=== PATIENT | male | born 1960 | race Two or more races ===

== ENCOUNTER 2021-05-03 14:55 | Emergency (ER) | payer OTHER ==
[~2021-05-03] VITALS: Ht 188 cm; Wt 102.1 kg
[2021-05-03] MEDS ORDERED: KETO10TA2 PO (18:41)
[2021-05-03] MEDS ORDERED: CIPRO500 MG PO (18:41)
[2021-05-03] MEDS ORDERED: TAMS0.4C PO (18:42)
== END 2021-05-03 18:51 | disposition home or self-care (01) ==
LOC: ER 14:55
DX: N20.1 Calculus of ureter (principal); K57.90 Diverticulosis of intestine, part unspecified, without perforation or abscess without bleeding; R10.31 Right lower quadrant pain; Z11.52 Encounter for screening for COVID-19

== ENCOUNTER 2021-05-05 00:23 | Emergency (ER) | payer OTHER ==
[~2021-05-05] VITALS: Ht 188 cm; Wt 89.4 kg
[~2021-05-05 00:23] MED LIST: CIPRO500 MG PO; KETO10TA2 PO; TAMS0.4C PO
[2021-05-05] MEDS ORDERED: PERCOCET 7.5-31 EACH PO (05:15)
== END 2021-05-05 05:24 | disposition home or self-care (01) ==
LOC: ER 00:23
DX: N21.1 Calculus in urethra (principal)